=== PATIENT | female | born 1950 | race Caucasian/White ===

== ENCOUNTER → 2017-01-05 | Outpatient (CLI) | payer OTHER | LOC: FIMAGING 09:26 | PROVIDERS: ATTEND Family Medicine | DX: Z12.31 Encounter for screening mammogram for malignant neoplasm of breast (principal) | CPT/HCPCS: G0202 ==

== ENCOUNTER → 2018-01-15 | Outpatient (CLI) | payer OTHER | LOC: FIMAGING 08:37 | PROVIDERS: ATTEND Family Medicine | DX: Z12.31 Encounter for screening mammogram for malignant neoplasm of breast (principal); Z85.3 Personal history of malignant neoplasm of breast ==